=== PATIENT | male | born 1955 | race Caucasian/White ===

== ENCOUNTER 2018-06-14 17:01 | Inpatient (IN) ==
[2018-06-14] MEDS ORDERED: ASPIRIN CHEW 324 MG PO STA (18:00)
[2018-06-14] MEDS ORDERED: DiphenhydrAMINE HCL 50 MG/ML VIAL IV STA (18:02)
[2018-06-14] MEDS ORDERED: methylPREDNISolone 125 MG/2 ML VIAL IV STA (18:02)
[2018-06-14 18:48] LABS: Basophils # (auto) 0.02 K/uL (0-0.2); Basophils % (auto) 0.2 %; Eosinophils # (auto) 0.07 K/uL (0-0.5); Eosinophils % (auto) 0.7 %; Hematocrit (blood only) 40.1 % (42-52); Hemoglobin 13.5 g/dL (14.0-18.0); Immature Granulocytes # (auto) 0.01 K/uL (0.00-0.02); Immature Granulocytes % (auto) 0.1 %; Lymphocytes # (auto) 1.58 K/uL (1.2-3.4); Lymphocytes % (auto) 15.1 %; Mean Corpuscular Hgb Conc 33.7 g/dL (32-36); Mean Corpuscular Volume 86.8 fL (80-100); Mean Platelet Volume 9.2 fL (7.4-10.4); Monocytes # (auto) 1.65 K/uL (0.11-0.59); Monocytes % (auto) 15.8 %; Neutrophils % (auto) 68.1 %; Platelet Count 321 K/uL (130-400); RDW Coefficient of Variation 13.1 % (11.5-14.5); RDW Standard Deviation 41.8 fL (36.4-46.3); Red Blood Count 4.62 M/uL (4.7-6.1); White Blood Count 10.43 K/uL (4.8-10.8)
[2018-06-14 19:06] LABS: BUN Creatinine Ratio 13.8 (10-20); Blood Urea Nitrogen 16 mg/dl (7-18); Calcium 8.8 mg/dl (8.5-10.1); Carbon Dioxide 28 mmol/L (21-32); Chloride 100 mmol/L (98-107); Creatinine Clr Calc Pharmacy 70.9 ml/min; Est GFR (African American) 75.7; Est GFR (Non-African American) 65.3; Glucose 113 mg/dl (70-99); Potassium 4.2 mmol/L (3.5-5.1); Sodium 135 mmol/L (136-145)
[2018-06-14 19:11] LABS: NT Pro B Type Natriuretic Pept 733 pg/ml (0-900); Troponin I < 0.015 ng/ml (0-0.045)
--- NOTE | 2018-06-14 19:13 | XRay Report ---
XR abdomen 2V w PA chest HISTORY: 62 years-old Male cp sob ab distention acute short of breath with abdominal distention COMPARISON: Chest radiograph 03/20/2016 TECHNIQUE: PA view of the chest with erect and supine views of the abdomen FINDINGS: Cardiac silhouette is enlarged, increased in size from comparison. Prior median sternotomy. Opacity o f the right cardiophrenic angle suggests prominent epicardial fat pad. No pneumothorax or overt pulmo nary edema. Small bilateral pleural effusions with left basilar opacities. Degenerative changes of th e shoulders and spine. Nonobstructive bowel gas pattern. No pneumatosis or pneumoperitoneum. Moderate formed stool noted thr oughout the colon. No definite urolith. Degenerative changes of the pelvis, hips and spine. Phlebolit hs of the right hemipelvis. IMPRESSION: 1. Small bilateral pleural effusions with left basilar opacities suggesting atelectasis or pneumoniti s. 2. Cardiomegaly, increased in size comparison. 3. Suggested constipation. 4. Nonobstructive bowel gas pattern. The above report was generated using voice recognition software. It may contain grammatical, syntax o r spelling errors. Electronically signed by: John Olson M.D. 06/14/2018 7:12 PM
[2018-06-14] MEDS ORDERED: OPTIRAY 320 125ml IV PRN (20:06)
--- NOTE | 2018-06-14 20:39 | CT Scan Report ---
CT angio chest PE protocol CLINICAL HISTORY: 62 years-old Male presenting with [place] ^Chest Pain, eval for PE. TECHNIQUE: Multidetector CT angiography of the chest was performed after administration of intravenou s contrast. 3-D volumetric and/or maximum intensity projection (MIP) images were subsequently reconst ructed for review. IV contrast: Optiray 320. A dose lowering technique was used consistent with the p rinciples of ALARA (as low as reasonably achievable). COMPARISON: Chest x-ray performed earlier the same day. CT DOSE (mGy.cm): The estimated cumulative dose is 570.66 mGycm. FINDINGS: [employer] topogram: Cardiomegaly. Median sternotomy wires. Left pleural effusion. Extensive left basilar opacity. Pulmonary vasculature: The study is adequate for assessment of the pulmonary vascular tree. No filling defect within the pul monary arteries to suggest embolus. Main pulmonary artery is not enlarged. No flattening of the inter ventricular septum. No intracardiac filling defect. Reflux of contrast into the IVC and hepatic veins . This likely indicates elevated right heart pressure. Remaining chest: On soft tissue windows, normal thyroid and thoracic inlet. No axillary, supraclavicular, hilar, or me diastinal lymphadenopathy. Normal aorta. Postsurgical changes of the ascending aorta possibly from pr ior coronary artery bypass grafting. Median sternotomy wires noted. Large pericardial effusion with m ild pericardial enhancement. This is water density. No significant apparent mass effect on the right heart. Small right and moderate left pleural effusions. These are also water density. Upper abdomen n ormal. On lung windows, extensive volume loss and consolidation in the lower lobes, left greater than right. This is consistent with passive atelectasis in the setting of the effusions. No pneumothorax. Centra l airways patent. Pulmonary arteries are not significantly enlarged relative to adjacent bronchi. No significant interlobular septal thickening. On bone windows, degenerative changes of the spine. The median sternotomy remains nonunited. IMPRESSION: 1. No evidence of pulmonary embolus. 2. Large pericardial effusion with findings suggesting mild pericarditis. 3. Small right and moderate left pleural effusions. 4. Findings suggest elevated right heart pressure though there is no CT evidence of right heart stra in. 5. Postsurgical changes of coronary artery bypass suspected. Electronically signed by: Abraham Lee M.D. 06/14/2018 8:33 PM
[2018-06-14] MEDS ORDERED: COLCHICINE 0.6 MG TAB PO STA (21:05)
[2018-06-14] MEDS ORDERED: IBUPROFEN 600 MG TAB PO STA (21:05)
[2018-06-14 22:58] LABS: INR 1.1 (0.9-1.1); Partial Thromboplastin Ratio 1.2; Partial Thromboplastin Time 32.1 Seconds (21.0-31.0); Prothrombin Time 11.2 Seconds (9.0-12.0)
[2018-06-15] MEDS ORDERED: NITROGLYCERIN SL 0.4 MG/TAB TAB SL PRN (00:24)
[2018-06-15] MEDS ORDERED: ONDANSETRON INJ 2 MG/ML 2 ML VIAL IV PRN (00:24)
[2018-06-15] MEDS ORDERED: BENZONATATE 100 MG CAPSULE PO PRN (00:24)
[2018-06-15] MEDS ORDERED: ACETAMINOPHEN 325 MG TAB PO PRN (00:24)
[2018-06-15] MEDS: CLOTRIMAZOLE 10 MG TROCHE BUCCAL SCH ×4 (00:43→15:50)
--- NOTE | 2018-06-15 01:44 | History and Physical Report ---
DATE OF ADMISSION: 06/14/2018 CHIEF COMPLAINT: Shortness of breath and chest pain on deep breath. 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 The patient initially had a stress test about 8 years ago when he used to get short of breath in the middle of the night that was negative, and the third stress test was done recently few months back when while exercising he was having wave like feeling in his left chest and at the time stress test was showing nonsustained v-tach, then the patient underwent cardiac catheterization and CTA of the chest. He also followed by electrophysiology, who recommended observation and beta chasity therapy. 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 Due to potential risk of sudden cardiac , coronary artery implantation was recommended and status post surgery on 04/05/2018 with no complications. He was recommended to be on Cardizem for about 3 months and also initially prescribed Lasix. Lasix initially was stopped in April, but again there was lower extremity edema and then he was put back on for every other day and finally it was stopped by CT surgery couple of weeks ago. The patient says he generally exercises every day, 15 minutes on treadmill and after that he does horizontal bicycles, but since last he was getting more short of breath than usual and it got progressively worse, where he could not exercise, even walking a few steps, making him short of breath and fatigued and also having dry cough for last 2-3 days, he could not sleep because of dry cough and also had some lower extremity edema. He was feeling dizzy, and some sweaty feeling on the head which happens when he develops fever, feeling chills, loss of appetite for the 2-3 days and also pain in his bilateral shoulder blades. He went to see his family doctor, who advised him to come to the ER today. In the ER, a CTA of the chest was done which was showing large pericardial effusion and pericarditis and also bilateral pleural effusions. The ER physician called breaker hand on-call who recommended colchicine 0.6mg BID and ibuprofen 600 mg p.o. q.i.d., . Currently hemodynamically stable. He has chest pain while taking deep breaths, Currently no headaches, no blurred vision , no earache, no runny nose. Has some sore throat because of thrush. He has just finished clotrimazole, but there is still thrush . No difficulty swallowing. No nausea currently. No abdominal pain. Normal bowel and bladder movements. No blood in the stools, no black stools, no burning micturition, no hematuria, but urine is still dark since he is not drinking much in the last couple of days. ALLERGIES: PENICILLINS AND IODINATED CONTRAST IV DYE. PAST MEDICAL HISTORY: As mentioned above. PAST SURGICAL HISTORY: CABG for reimplant of right coronary artery performed at [facility], colonoscopy with biopsy, cardiac cath, dental surgery, EGDs with biopsy, cervical plaques, more remote, tonsillectomy and adenoidectomy. MEDICATIONS: The patient is on Prevacid 30 mg p.o. daily, allopurinol 300 mg p.o. daily, diltiazem 120 mg p.o. daily, aspirin 81 mg p.o. daily, clotrimazole antifungal cream p.r.n. b.i.d., atorvastatin 10 mg p.o. daily, Zantac 300 mg p.o. at bedtime, Toprol-XL 25 mg p.o. daily, Tessalon Perles 100 mg p.o. t.i.d. p.r.n., Coenzyme Q10 10 ____ mg 2 tablets daily, sulindac 200 mg p.o. b.i.d. to start on the first day of gout, fish oil 2000 mg daily, probiotics 1 capsule daily, gluconate 0.05% apply to scalp daily as needed, multivitamins 1 pill daily, Citrucel powder b.i.d. FAMILY HISTORY: Significant for father who had colon cancer. Mother had diabetes, diverticulosis and heart failure. SOCIAL HISTORY: , lives with . No smoking, no alcohol, no drug use. REVIEW OF SYMPTOMS: As per HPI. Rest of review of symptoms negative. PHYSICAL EXAMINATION: GENERAL: The patient is of moderate build, not in acute distress. VITAL SIGNS: Temperature 37, pulse 87, respirations 18, blood pressure 113/80, oxygen 95% on room air. HEENT: No pallor, no icterus. Pupils equal, round, and react to light. NECK: No JVD, no neck masses, no carotid bruit. CARDIOVASCULAR: S1, S2 heard, regular rate and rhythm, no murmur, no gallop. RESPIRATORY SYSTEM: Normal AP diameter. No signs accessory muscle use. No wheezing, no crackles. ABDOMEN: Soft, bowel sounds present. No distention, no guarding, no rigidity. CENTRAL NERVOUS SYSTEM: Cranial nerves II-XII grossly intact. Nonfocal. EXTREMITIES: Mild pedal edema present, no erythema seen. LABORATORIES: WBC 10.4, hemoglobin 13.5, hematocrit 40.1, platelets 321. Sodium 135, potassium 4.2, chloride 100, bicarbonate 28, BUN 16, creatinine 1.18, serum glucose 113, calcium 8.8. Troponin-I less than 0.015. BNP 733. Chest x-ray: Small bilateral pleural effusions with left bibasilar opacities suggesting atelectasis or pneumonitis, cardiomegaly, constipation. Chest CTA, no evidence of pulmonary embolus, large pericardial effusion with findings suggesting mild pericarditis. Small right and moderate left pleural effusions, findings suggest elevated right heart pressure, though there is no CT evidence of right heart strain. EKG: Normal sinus rhythm with rate of [address] elevation in inferior leads. ASSESSMENT AND PLAN: This is a 62-year-old male who presents with shortness of breath, chest pain on deep breath and found to have large pericardial effusion, pericarditis and bilateral pleural effusions. 1. Shortness of breath, chest pain on deep breath, most likely secondary to pericarditis. CTA of the chest showed large pericardial effusion and mild pericarditis. ER physician notified the breaker hand and was recommended to start on Colace and ibuprofen which is given. We will place him on ibuprofen given q. 6 hours, colchicine 0.6 mg p.o. b.i.d. Follow echocardiogram, follow serial cardiac enzymes and close monitoring in the tele floor. 2. Bilateral pleural effusions. Patient's Lasix was stopped couple of weeks ago. We will place him on IV Lasix 20 mg daily with potassium supplement and also we will check a chest ultrasound to see if there is any need to get thoracocentesis. 3. Anomalous origin of right coronary artery, status post coronary artery reimplantation on 04/05/2018 at [facility]. Patient recommended to be on Cardizem for 3 months. This will continue. Lasix was stopped couple of weeks ago, but we will place him back on it for now because of signs of volume overload. Await Cardiology opinion. 4. Schwannoma, status post surgery. 5. Gastroesophageal reflux disease on Zantac and Prevacid. 6. Hypertension. Continue metoprolol succinate and Cardizem. 7. Hyperlipidemia. Continue Lipitor. 8. Deep venous thrombosis prophylaxis, SCDs for now. 9. Disposition. Close monitor on tele floor. Level 1 full code. MTDD
--- NOTE | 2018-06-15 01:50 | Emergency Department Note ---
Entered by Anna Marino acting as a scribe for History of Present Illness General Chief complaint: Referred by Doctor Stated complaint: HEART FAILURE, DR COBIAN REFERRED Time Seen by Provider: 06/14/18 17:54 Source: patient Mode of arrival: ambulatory Limitations: no limitations History of Present Illness Onset (ago): day(s) 4 Location: chest Pain Consistency: + other (worsening) Maximum Pain Intensity: 0 Associated symptoms: + chest pain, + cough (dry cough), + shortness of breath, + weakness and + other (He notes that 4 days ago he developed throat pain, thrush, fatigue with walking, dizziness, chills, weight gain of 9 pounds since 06/03/2018. The patient denies leg pain. ); no fever/chills (The patient denies fever. The patient complains of chills. ) and no nausea/vomiting (The patient denies vomiting.) The patient is a 62 year old male who presents to the ED after being referred by his doctor for exertional dyspnea and chest pain. He states that he has a coronary reimplantation on 04/05/2018 in [place]. The patient notes that he has been active since his operation. He notes that 4 days ago he developed chest pain, weakness, shortness of breath, dry cough, fatigue with walking, dizziness, chills, weight gain of 9 pounds since 06/03/2018. He states that his symptoms are worsening. The patient denies fever, vomiting, abdominal pain, and leg pain. He notes that he takes aspirin. Home Medications Home Medications Medication Instructions Recorded Confirmed Type allopurinol 300 mg PO DAILY 06/14/18 06/14/18 History aspirin [Aspirin Low Dose] 81 mg PO BID 06/14/18 06/14/18 History atorvastatin 10 mg PO DAILY 06/14/18 06/14/18 History azelastine 1 spray INTRANASAL BID 06/14/18 06/14/18 History benzonatate 100 mg PO TID PRN 06/14/18 06/14/18 History coenzyme Q10 [Co Q-10] 20 mg PO DAILY 06/14/18 06/14/18 History diltiazem HCl 120 mg PO DAILY 06/14/18 06/14/18 History fluocinonide 1 applic TOPICAL BID 06/14/18 06/14/18 History lactobacillus combination no.4 3,000 mmu cells PO DAILY 06/14/18 06/14/18 History [Probiotic] lansoprazole 30 mg PO DAILY 06/14/18 06/14/18 History methylcellulose (with sugar) 1 tbsp PO BID 06/14/18 06/14/18 History [Citrucel (sucrose)] metoprolol succinate 25 mg PO DAILY 06/14/18 06/14/18 History multivitamin 1 tab PO DAILY 06/14/18 06/14/18 History omega-3 fatty acids [Fish Oil 1,000 mg PO DAILY 06/14/18 06/14/18 History Concentrate] ranitidine HCl 300 mg PO HS 06/14/18 06/14/18 History sulindac 200 mg PO BID 06/14/18 06/14/18 History Allergies Allergy/AdvReac Type Severity Reaction Status Date / Time Penicillins Allergy W[place] RASH Unverified 06/14/18 19:08 Iodinated Contrast- Oral and Allergy U REDNESS TO Unverified 06/14/18 19:08 IV Dye CHEST Past Med/Surg History Medical History Arrhythmia (Acute) non-sustained VT Diverticular disease (Acute) GERD (gastroesophageal reflux disease) (Acute) Gout (Acute) Hyperlipidemia (Acute) Syncope (Acute) Surgical History History of coronary artery bypass graft (Acute) Anomalous RCA; 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/2018 Family History Mother Congenital heart disease Social History Current Living Situation: Spouse current occupation: Retired Feels Safe at Home: Yes Safety Concerns: Feels Safe At This Time Smoking Status: Never smoker Do You Dip or Chew Tobacco: No Second Hand Exposure: No Tobacco Cessation Education Requested by Patient: No Hx Alcohol Use: Yes Alcohol type: beer Alcohol Intake Frequency: holidays/ special occasions only Hx Substance Use: No Beliefs That Will Affect Care: None Preferred Language: Luxembourgish Communication Ability: Effective 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 and A total of 10 systems reviewed and were otherwise negative Physical Exam Vital Signs Vital Signs - 24 hr 06/14/18 17:21 06/14/18 19:39 06/14/18 21:15 Temperature 37 C Temperature Source Oral Sepsis Recent Fever Within 48 Hours No Sepsis New/Unexplained Change in Mental Status No Sepsis Action Taken by Nursing No Action Required Pulse Rate 90 Pulse Rate [Bilateral] 86 87 Pulse Rhythm Regular Pulse Rhythm [Bilateral] Regular Regular Pulse Strength Normal Pulse Strength [Bilateral] Normal Normal Respiratory Rate 22 20 18 Respiratory Effort / Characteristics Non-Labored SOB on Exertion Non-Labored Spontaneous Non-Labored Spontaneous Respiratory Depth Normal Normal Normal Respiratory Pattern Regular Regular Blood Pressure 122/84 Blood Pressure [Right Arm] 125/92 113/80 Blood Pressure Mean 96 Blood Pressure Mean [Right Arm] 103 91 Blood Pressure Position [Right Arm] Lying Sitting Pulse Oximetry 92 98 95 Oxygen Delivery Method Room Air Room Air Room Air 06/14/18 22:00 06/15/18 00:08 Temperature 36.6 C Temperature Source Oral Sepsis Recent Fever Within 48 Hours Sepsis New/Unexplained Change in Mental Status Sepsis Action Taken by Nursing Pulse Rate Pulse Rate [Bilateral] 82 85 Pulse Rhythm Pulse Rhythm [Bilateral] Regular Regular Pulse Strength Pulse Strength [Bilateral] Normal Normal Respiratory Rate 20 20 Respiratory Effort / Characteristics Non-Labored Spontaneous Non-Labored Spontaneous Respiratory Depth Normal Normal Respiratory Pattern Regular Regular Blood Pressure Blood Pressure [Right Arm] 114/87 124/91 Blood Pressure Mean Blood Pressure Mean [Right Arm] 96 102 Blood Pressure Position [Right Arm] Sitting Sitting Pulse Oximetry 95 92 Oxygen Delivery Method Room Air Room Air GENERAL: He is oriented to person, place, and time. He appears well-developed and well-nourished. He does not appear distressed. HENT: Exam performed. Head: Normocephalic and atraumatic. Right Ear: External ear normal. No mastoid tenderness. Left Ear: External ear normal. No mastoid tenderness. Mouth/Throat: The oropharynx is clear and moist. No trismus in the jaw. No dental abscesses or uvula swelling. No oropharyngeal exudate or tonsillar abscesses. EYES: Conjunctivae and EOM are normal. Pupils are equal, round, and reactive to light. Right eye exhibits no discharge. Left eye exhibits no discharge. No scleral icterus. NECK: Normal range of motion. Neck supple. No JVD present. No spinous process tenderness present. No carotid bruit present. No rigidity. No tracheal deviation and normal range of motion present. No Brudzinski's sign and no Kernig 's sign noted. CV: Normal rate, regular rhythm, normal heart sounds and intact distal pulses. There is no peripheral edema. Palpable radial pulses bue. PULM/CHEST: Effort normal and breath sounds normal. No respiratory distress. No stridor. He has no wheezes. He has no rales. Chest Wall: He exhibits no tenderness. ABD: The abdomen is soft. Bowel sounds are normal. He has no distension. No mass is present. There is no tenderness. There is no rebound, no guarding, no Kitchen's sign and no tenderness at McBurney's point. Rovsig negative MUSC/SKEL: Normal range of motion. There is no peripheral edema, tenderness or deformity. LYMPH: No cervical adenopathy. NEURO: He is alert and oriented to person, place, and time. He has normal strength. No cranial nerve deficit or sensory deficit. Coordination and gait normal. GCS eye subscore is 4. GCS verbal subscore is 5. GCS motor subscore is 6. cerbellar tests wnl. SKIN: Skin is warm and dry. He is not diaphoretic. PSYCH: He has a normal mood and affect. His behavior is normal. Judgment and thought content normal. Course 1754: Past medical records reviewed. The patient was evaluated in room B2, and a complete history and physical examination were performed. 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 He had a procedure done on 04/05/18 for removal of this. 2101: Vital signs stable. Patient is exhibiting no rales on physical exam, no JVD, no muffled heart sounds. CTA shows no PE but does show a large pericardial effusion. Bedside ultrasound was performed which confirmed the large pericardial effusion, no pericardial tamponade. I reviewed the patient's case with Dr. Rouse [employer] Research Engineer. He agrees that he agrees that the patient should be admitted to the hospitalist services. He states that the patient should be started on Colchicine 0.6 mg BID as well we ibuprofen 600 mg Q6 hours. 2109: I reviewed the patient's case with Dr. Liza Ruiz. He will evaluate the patient for further management. Consultations Consultation #1: [id number]: I reviewed the patient's case with Dr. Rouse [employer] Research Engineer. He agrees that he agrees that the patient should be admitted to the hospitalist services. He states that the patient should be started on Colchicine 0.6 mg BID as well we ibuprofen 600 mg Q6 hours. Time: 21:02 Consultation #2: [id number]: I reviewed the patient's case with Dr. De Jesus Hospitalist Thelma Ruiz. He will evaluate the patient for further management. Time: 21:10 Administered Medications Clotrimazole (Mycelex) 10 mg BUCCAL [id number] ANGELA Stop: 06/25/18 00:23 Last Admin: 06/15/18 00:43 Dose: 10 mg Discontinued Medications Aspirin (Aspirin) 324 mg PO NOW STA Stop: 06/14/18 18:01 Last Admin: 06/14/18 18:51 Dose: 324 mg Colchicine (Colcrys) 0.6 mg PO NOW STA Stop: 06/14/18 21:06 Last Admin: 06/14/18 21:13 Dose: 0.6 mg Diphenhydramine HCl (Benadryl) 25 mg IV NOW STA Stop: 06/14/18 18:03 Last Admin: 06/14/18 19:32 Dose: 25 mg Ibuprofen (Motrin) 600 mg PO NOW STA Stop: 06/14/18 21:06 Last Admin: 06/14/18 21:13 Dose: 600 mg Methylprednisolone (Solumedrol) 125 mg IV NOW STA Stop: 06/14/18 18:03 Last Admin: 06/14/18 19:32 Dose: 125 mg Medical Decision Making Medical Records Attestation: I reviewed the patient's medical records. Home Medications Current Medication List: was personally reviewed by me Laboratory Data Attestation: I reviewed the patient's lab results. Result diagrams: 06/14/18 18:30 06/14/18 18:30 Lab Results 06/14/18 06/14/18 06/14/18 Range/Units 18:30 18:30 18:30 WBC 10.43 (4.8-10.8) K/uL RBC 4.62 L (4.7-6.1) M/uL Hgb 13.5 L (14.0-18.0) g/dL Hct 40.1 L (42-52) % MCV 86.8 (80-100) fL MCH 29.2 (25-34) pg MCHC 33.7 (32-36) g/dL RDW Std Deviation 41.8 (36.4-46.3) fL RDW Coeff of Ambrose 13.1 (11.5-14.5) % Plt Count 321 (130-400) K/uL MPV 9.2 (7.4-10.4) fL Immature Gran % (Auto) 0.1 % Neut % (Auto) 68.1 % Lymph % (Auto) 15.1 % [place] % (Auto) 15.8 % Eos % (Auto) 0.7 % Baso % (Auto) 0.2 % Immature Gran # (Auto) 0.01 (0.00-0.02) K/uL Neut # (Auto) 7.10 H (1.4-6.5) K/uL Lymph # (Auto) 1.58 (1.2-3.4) K/uL [place] # (Auto) 1.65 H (0.11-0.59) K/uL Eos # (Auto) 0.07 (0-0.5) K/uL Baso # (Auto) 0.02 (0-0.2) K/uL PT 11.2 (9.0-12.0) Seconds INR 1.1 (0.9-1.1) APTT 32.1 H (21.0-31.0) Seconds PTT Ratio 1.2 Sodium 135 L (136-145) mmol/L Potassium 4.2 (3.5-5.1) mmol/L Chloride 100 (98-107) mmol/L Carbon Dioxide 28 (21-32) mmol/L Anion Gap 7.0 (3-11) BUN 16 (7-18) mg/dl Creatinine 1.18 (0.6-1.4) mg/dl Est Cr Clr Drug Dosing 70.9 ml/min Est GFR ( Amer) 75.7 Est GFR (Non-Af Amer) 65.3 BUN/Creatinine Ratio 13.8 (10-20) Glucose 113 H (70-99) mg/dl Calcium 8.8 (8.5-10.1) mg/dl Troponin I < 0.015 (0-0.045) ng/ml NT-Pro-B Natriuret Pep 733 (0-900) pg/ml 06/14/18 Range/Units 22:53 WBC (4.8-10.8) K/uL RBC (4.7-6.1) M/uL Hgb (14.0-18.0) g/dL Hct (42-52) % MCV (80-100) fL MCH (25-34) pg MCHC (32-36) g/dL RDW Std Deviation (36.4-46.3) fL RDW Coeff of [place]rose (11.5-14.5) % Plt Count (130-400) K/uL MPV (7.4-10.4) fL Immature Gran % (Auto) % Neut % (Auto) % Lymph % (Auto) % [place] % (Auto) % Eos % (Auto) % Baso % (Auto) % Immature Gran # (Auto) (0.00-0.02) K/uL Neut # (Auto) (1.4-6.5) K/uL Lymph # (Auto) (1.2-3.4) K/uL [place] # (Auto) (0.11-0.59) K/uL Eos # (Auto) (0-0.5) K/uL Baso # (Auto) (0-0.2) K/uL PT (9.0-12.0) Seconds INR (0.9-1.1) APTT (21.0-31.0) Seconds PTT Ratio Sodium (136-145) mmol/L Potassium (3.5-5.1) mmol/L Chloride (98-107) mmol/L Carbon Dioxide (21-32) mmol/L Anion Gap (3-11) BUN (7-18) mg/dl Creatinine (0.6-1.4) mg/dl Est Cr Clr Drug Dosing ml/min Est GFR ( Amer) Est GFR (Non-Af Amer) BUN/Creatinine Ratio (10-20) Glucose (70-99) mg/dl Calcium (8.5-10.1) mg/dl Troponin I < 0.015 (0-0.045) ng/ml NT-Pro-B Natriuret Pep (0-900) pg/ml Imaging Data Radiologist's Impression: Radiology results as stated below per my review and the radiologist's interpretation: CT angio chest PE protocol CLINICAL HISTORY: 62 years-old Male presenting with [place] ^Chest Pain, eval for PE. TECHNIQUE: Multidetector CT angiography of the chest was performed after administration of intravenous contrast. 3-D volumetric and/or maximum intensity projection (MIP) images were subsequently reconstructed for review. IV contrast : Optiray 320. A dose lowering technique was used consistent with the principles of ALARA (as low as reasonably achievable). COMPARISON: Chest x-ray performed earlier the same day. CT DOSE (mGy.cm): The estimated cumulative dose is 570.66 mGycm. FINDINGS: Fire Battalion Chief topogram: Cardiomegaly. Median sternotomy wires. Left pleural effusion. Extensive left basilar opacity. Pulmonary vasculature: The study is adequate for assessment of the pulmonary vascular tree. No filling defect within the pulmonary arteries to suggest embolus. Main pulmonary artery is not enlarged. No flattening of the interventricular septum. No intracardiac filling defect. Reflux of contrast into the IVC and hepatic veins. This likely indicates elevated right heart pressure. Remaining chest: On soft tissue windows, normal thyroid and thoracic inlet. No axillary, supraclavicular, hilar, or mediastinal lymphadenopathy. Normal aorta. Postsurgical changes of the ascending aorta possibly from prior coronary artery bypass grafting. Median sternotomy wires noted. Large pericardial effusion with mild pericardial enhancement. This is water density. No significant apparent mass effect on the right heart. Small right and moderate left pleural effusions. These are also water density. Upper abdomen normal. On lung windows, extensive volume loss and consolidation in the lower lobes, left greater than right. This is consistent with passive atelectasis in the setting of the effusions. No pneumothorax. Central airways patent. Pulmonary arteries are not significantly enlarged relative to adjacent bronchi. No significant interlobular septal thickening. On bone windows, degenerative changes of the spine. The median sternotomy remains nonunited. IMPRESSION: 1. No evidence of pulmonary embolus. 2. Large pericardial effusion with findings suggesting mild pericarditis. 3. Small right and moderate left pleural effusions. 4. Findings suggest elevated right heart pressure though there is no CT evidence of right heart strain. 5. Postsurgical changes of coronary artery bypass suspected. Electronically signed by: Abraham Lee M.D. 06/14/2018 8:33 PM Dictated: 06/14/182026 Transcribed: 06/14/182026 XR abdomen 2V w PA chest HISTORY: 62 years-old Male cp sob ab distention acute short of breath with abdominal distention COMPARISON: Chest radiograph 03/20/2016 TECHNIQUE: PA view of the chest with erect and supine views of the abdomen FINDINGS: Cardiac silhouette is enlarged, increased in size from comparison. Prior median sternotomy. Opacity of the right cardiophrenic angle suggests prominent epicardial fat pad. No pneumothorax or overt pulmonary edema. Small bilateral pleural effusions with left basilar opacities. Degenerative changes of the shoulders and spine. Nonobstructive bowel gas pattern. No pneumatosis or pneumoperitoneum. Moderate formed stool noted throughout the colon. No definite urolith. Degenerative changes of the pelvis, hips and spine. Phleboliths of the right hemipelvis. IMPRESSION: 1. Small bilateral pleural effusions with left basilar opacities suggesting atelectasis or pneumonitis. 2. Cardiomegaly, increased in size comparison. 3. Suggested constipation. 4. Nonobstructive bowel gas pattern. The above report was generated using voice recognition software. It may contain grammatical, syntax or spelling errors. Electronically signed by: John Olson M.D. 06/14/2018 7:12 PM Dictated: 06/14/181909 Transcribed: 06/14/181909 ECG Data Attestation: I personally reviewed and interpreted this ECG as follows: Indication: chest pain Rate (beats per minute): 84 Rhythm: sinus rhythm Findings: + other (MA, QRS, and QTC were within normal limits. ); no ST depression and no ST elevation Blood Pressure Blood Pressure Findings: Normal blood pressure MDM Narrative 1754: Past medical records reviewed. The patient was evaluated in room B2, and a complete history and physical examination were performed. 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 He had a procedure done on 04/05/18 for removal of this. 2101: Vital signs stable. Patient is exhibiting no rales on physical exam, no JVD, no muffled heart sounds. CTA shows no PE but does show a large pericardial effusion. Bedside ultrasound was performed which confirmed the large pericardial effusion, no pericardial tamponade. I reviewed the patient's case with Dr. Kemp- [employer] Research Engineer. He agrees that he agrees that the patient should be admitted to the hospitalist services. He states that the patient should be started on Colchicine 0.6 mg BID as well we ibuprofen 600 mg Q6 hours. 2109: I reviewed the patient's case with Dr. De Jesus Hospitalist - Sara. He will evaluate the patient for further management. Impression & Plan Effusion, pericardium, Exertional dyspnea Discharge Plan Visit Data *Final* Discharge Date/Time: 06/14/18 23:04 Chief Complaint: Referred by Doctor Stated Complaint: HEART FAILURE, DR COBIAN REFERRED ED Provider: Pako Valverde Discharge Problem: Effusion, pericardium, Exertional dyspnea Patient Disposition: Admitted As Inpatient Discharge Instructions Interventions: ED Discharge Assessment Last Done: 06/14/18 23:04 The scribe's documentation has been prepared under my direction and personally reviewed by me in its entirety. I confirm that the note above accurately reflects all work, treatment, procedures, and medical decision making performed by me.
[2018-06-15] MEDS ORDERED: IBUPROFEN 600 MG TAB PO ONE (06:15)
[2018-06-15] MEDS: IBUPROFEN 600 MG TAB PO SCH ×3 (06:16→18:20)
--- NOTE | 2018-06-15 06:54 | Ultrasound Report ---
US effusion-chest/mediastinum CLINICAL HISTORY: Bilateral pleural effusions. COMPARISON STUDY: Chest CT June 14, 2018. FINDINGS: Volume of the left pleural effusion was 596 cc. Suitable left rib interspace was marked for possible subsequent thoracentesis. A small right pleural effusion was noted with volume of 90 cc. No right chest wall giles was placed given insufficient window for thoracentesis. IMPRESSION: 1. Moderate left pleural effusion with estimated volume of 596 cc. Suitable left rib interspace marke d for possible subsequent thoracentesis. 2. Small right pleural effusion. No right chest wall giles placed. Electronically signed by: Lavell Montalvo M.D. 06/15/2018 6:53 AM
[2018-06-15] MEDS ORDERED: [UNRECOGNIZED DRUG - OTHER] PO SCH (09:00)
[2018-06-15] MEDS ORDERED: COENZYME Q10 PO SCH (09:00)
[2018-06-15] MEDS ORDERED: POTASSIUM CHLORIDE 10 MEQ TABCR PO SCH (09:00)
[2018-06-15] MEDS ORDERED: dilTIAZem ER 120 MG CAPCR PO SCH (09:00)
[2018-06-15] MEDS ORDERED: ATORVASTATIN 10 MG TAB PO SCH (09:00)
[2018-06-15] MEDS ORDERED: COLCHICINE 0.6 MG TAB PO SCH (09:00)
[2018-06-15] MEDS ORDERED: PANTOprazole 40 MG TAB PO SCH (09:00)
[2018-06-15] MEDS ORDERED: MULTIVITAMIN TAB PO SCH (09:00)
[2018-06-15] MEDS ORDERED: METOPROLOL SUCC 25MG EXT REL TAB PO SCH (09:00)
[2018-06-15] MEDS ORDERED: FLUOCINONIDE TOP SCH (09:00)
[2018-06-15] MEDS ORDERED: LACTOBACILLUS ACIDOPHILUS (FLORANEX) TAB PO SCH (09:00)
[2018-06-15] MEDS ORDERED: FUROSEMIDE 20 MG in SYRINGE 0 ML IV SCH (09:00)
[2018-06-15] MEDS ORDERED: FLUOCINONIDE 0.05% CR 15 GM TUBE EXT SCH (09:00)
[2018-06-15] MEDS ORDERED: ALLOPURINOL 300 MG TAB PO SCH (09:00)
[2018-06-15] MEDS ORDERED: ASPIRIN 81 MG ECTAB PO SCH (09:00)
[2018-06-15] MEDS ORDERED: METHYLCELLULOSE POWDER 454 GM JAR PO SCH (09:00)
--- NOTE | 2018-06-15 09:04 | Cardiology Consultation ---
Date of Consultation June 15, 2018 Assessment & Plan (1) Effusion, pericardium: Patient presents with late postoperative pericardial effusion Adin's in 10-week after surgery with large pericardial effusion and borderline hemodynamic significance. He is begun on ibuprofen and colchicine in the emergency room received a single dose of Solu-Medrol due to dye allergy prior to CAT scan. Discussed findings with patient effusion worsens any further will likely need drainage either percutaneously versus surgical. Have recommended transfer to [facility] arrangements have been made continue current therapies as ordered. (2) Exertional dyspnea: Relatively recent onset likely reflecting hemodynamic significance of pericardial and pleural effusions moderate fluid retention. Reluctant to add diuretics as right ventricle appears to be preload dependent (3) H/O heart surgery: Status post reimplantation of anomalous coursing right coronary artery at 04/05/2018 (4) Pleural effusion: History of Present Illness Reason for Consultation: Pericardial effusion, pleural effusion, pericarditis Requesting Physician: Dr. 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 Patient underwent on 04/05/2018 right coronary surgical implantation. Presents now noting having done well postoperatively with substantial improvement in exercise capacity per dissipating in cardiac rehab exercising vigorously with good tolerance until approximately 5 days prior to presentation in the interim is noted symptoms of pleuritic pain bilateral shoulder pain increasing dyspnea with minimal exertion 5-6 pound weight gain with abdominal bloating. He presented to the emergency room due to symptoms he noted no fevers chills sweats cough hoarseness wheeze or hemoptysis melena or hematochezia noted no acute illness other than symptoms as a described. CT scan of the chest in the emergency room demonstrated large pericardial effusion as well as left pleural effusion. Confirmed by echocardiogram reflecting early hemodynamic significance of effusion. He is referred for further evaluation Allergies Allergy/AdvReac Type Severity Reaction Status Date / Time Penicillins Allergy [place] RASH Unverified 06/14/18 19:08 Iodinated Contrast- Oral and Allergy U REDNESS TO Unverified 06/14/18 19:08 IV Dye CHEST Home Medications Home Medications Medication Instructions Recorded Confirmed Type allopurinol 300 mg PO DAILY 06/14/18 06/14/18 History aspirin [Aspirin Low Dose] 81 mg PO BID 06/14/18 06/14/18 History atorvastatin 10 mg PO DAILY 06/14/18 06/14/18 History azelastine 1 spray INTRANASAL BID 06/14/18 06/14/18 History benzonatate 100 mg PO TID PRN 06/14/18 06/14/18 History coenzyme Q10 [Co Q-10] 20 mg PO DAILY 06/14/18 06/14/18 History diltiazem HCl 120 mg PO DAILY 06/14/18 06/14/18 History fluocinonide 1 applic TOPICAL BID 06/14/18 06/14/18 History lactobacillus combination no.4 3,000 mmu cells PO DAILY 06/14/18 06/14/18 History [Probiotic] lansoprazole 30 mg PO DAILY 06/14/18 06/14/18 History methylcellulose (with sugar) 1 tbsp PO BID 06/14/18 06/14/18 History [Citrucel (sucrose)] metoprolol succinate 25 mg PO DAILY 06/14/18 06/14/18 History multivitamin 1 tab PO DAILY 06/14/18 06/14/18 History omega-3 fatty acids [Fish Oil 1,000 mg PO DAILY 06/14/18 06/14/18 History Concentrate] ranitidine HCl 300 mg PO HS 06/14/18 06/14/18 History sulindac 200 mg PO BID 06/14/18 06/14/18 History Patient History Medical History Arrhythmia (Acute) non-sustained VT Diverticular disease (Acute) GERD (gastroesophageal reflux disease) (Acute) Gout (Acute) Hyperlipidemia (Acute) Syncope (Acute) Surgical History History of coronary artery bypass graft (Acute) Anomalous RCA; 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/2018 Family History Mother Congenital heart disease Social History Current Living Situation: Spouse current occupation: Retired Feels Safe at Home: Yes Safety Concerns: Feels Safe At This Time Smoking Status: Never smoker Do You Dip or Chew Tobacco: No Second Hand Exposure: No Tobacco Cessation Education Requested by Patient: No Hx Alcohol Use: Yes Alcohol type: beer Alcohol Intake Frequency: holidays/ special occasions only Hx Substance Use: No Beliefs That Will Affect Care: None Preferred Language: Latvian Communication Ability: Effective Spring Encaser Required: No Review of Systems As per HPI and otherwise negative Physical Exam 2 Vital Signs (Past 24 Hours): Last Vital Signs Temp 36.6 C 06/15/18 06:53 Pulse 73 06/15/18 06:53 Resp 18 06/15/18 06:53 BP 110/76 06/15/18 06:53 Pulse Ox 73 L 06/15/18 06:53 Physical Exam: HEENT exam is normocephalic and atraumatic Neck reveals old left surgical incision plethoric neck veins with jugular venous distention upright Lungs diminished breath sounds at the left base no rhonchi rales or wheeze Cardiovascular exam: Regular distant heart sounds with no S3 gallop there is no audible rub Chest surgical incision healing well Abdomen soft with moderate distention Extremities 1+ pedal edema with intact distal pulses Neurologically patient is alert oriented answering questions appropriately Results & Data Laboratory Results Laboratory Results WBC 10.43 K/uL (4.8-10.8) 06/14/18 18:30 RBC 4.62 M/uL (4.7-6.1) L 06/14/18 18:30 Hgb 13.5 g/dL (14.0-18.0) L 06/14/18 18:30 Hct 40.1 % (42-52) L 06/14/18 18:30 MCV 86.8 fL (80-100) 06/14/18 18:30 MCH 29.2 pg (25-34) 06/14/18 18:30 MCHC 33.7 g/dL (32-36) 06/14/18 18:30 RDW Std Deviation 41.8 fL (36.4-46.3) 06/14/18 18:30 RDW Coeff of [place] 13.1 % (11.5-14.5) 06/14/18 18:30 Plt Count 321 K/uL (130-400) 06/14/18 18:30 MPV 9.2 fL (7.4-10.4) 06/14/18 18:30 Immature Gran % (Auto) 0.1 % 06/14/18 18:30 Neut % (Auto) 68.1 % 06/14/18 18:30 Lymph % (Auto) 15.1 % 06/14/18 18:30 [place] % (Auto) 15.8 % 06/14/18 18:30 Eos % (Auto) 0.7 % 06/14/18 18:30 Baso % (Auto) 0.2 % 06/14/18 18:30 Immature Gran # (Auto) 0.01 K/uL (0.00-0.02) 06/14/18 18:30 Neut # (Auto) 7.10 K/uL (1.4-6.5) H 06/14/18 18:30 Lymph # (Auto) 1.58 K/uL (1.2-3.4) 06/14/18 18:30 [place] # (Auto) 1.65 K/uL (0.11-0.59) H 06/14/18 18:30 Eos # (Auto) 0.07 K/uL (0-0.5) 06/14/18 18:30 Baso # (Auto) 0.02 K/uL (0-0.2) 06/14/18 18:30 PT 11.2 Seconds (9.0-12.0) 06/14/18 18:30 INR 1.1 (0.9-1.1) 06/14/18 18:30 APTT 32.1 Seconds (21.0-31.0) H 06/14/18 18:30 PTT Ratio 1.2 06/14/18 18:30 Sodium 135 mmol/L (136-145) L 06/14/18 18:30 Potassium 4.2 mmol/L (3.5-5.1) 06/14/18 18:30 Chloride 100 mmol/L (98-107) 06/14/18 18:30 Carbon Dioxide 28 mmol/L (21-32) 06/14/18 18:30 Anion Gap 7.0 (3-11) 06/14/18 18:30 BUN 16 mg/dl (7-18) 06/14/18 18:30 Creatinine 1.18 mg/dl (0.6-1.4) 06/14/18 18:30 Est Cr Clr Drug Dosing 70.9 ml/min 06/14/18 18:30 Est GFR ( Amer) 75.7 06/14/18 18:30 Est GFR (Non-Af Amer) 65.3 06/14/18 18:30 BUN/Creatinine Ratio 13.8 (10-20) 06/14/18 18:30 Glucose 113 mg/dl (70-99) H 06/14/18 18:30 Calcium 8.8 mg/dl (8.5-10.1) 06/14/18 18:30 Troponin I < 0.015 ng/ml (0-0.045) 06/15/18 04:24 NT-Pro-B Natriuret Pep 733 pg/ml (0-900) 06/14/18 18:30 Diagnostic Findings Echocardiogram demonstrates borderline left hypertrophy with normal left systolic function is a large circumferential but predominantly posterior lateral pericardial effusion with right ventricular compression reflecting early hemodynamic significance ECG Additional Comments: EKG reveals normal sinus rhythm with ST elevation in inferior and lateral leads with MI depression consistent with pericarditis
--- NOTE | 2018-06-15 10:03 | Hospitalist Progress Note ---
Date of Service June 15, 2018 Assessment & Plan (1) Effusion, pericardium: Patient presents with late postoperative pericardial and pleural effusion Likely has Adin's in 10-week after surgery Has a large pericardial effusion and borderline hemodynamic significance. He is begun on ibuprofen and colchicine in the emergency room received a single dose of Solu-Medrol due to dye allergy prior to CAT scan. 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 06/15/2018 The patient was seen and examined in telemetry unit No complaints at rest With movement and sitting position has some chest pain and shortness of breath Was seen by cdl instructor and the patient will be transferred to [place] for continuation of care Physical Exam 2 Vital Signs (Past 24 Hours): Last Vital Signs Temp 36.6 C 06/15/18 06:53 Pulse 73 06/15/18 06:53 Resp 18 06/15/18 06:53 BP 110/76 06/15/18 06:53 Pulse Ox 73 L 06/15/18 06:53 Physical Exam: Lying in bed comfortably Constitutional: WD/WN, vitals as above (No apparent distress at rest) Eyes: PERRL, conjunctivae normal, anicteric sclerae ENMT: external ear and nose normal, oropharynx normal Respiratory: Auscultation: + diminished lung sounds (Bilaterally lower [place]) Cardiovascular: Heart Sounds: normal S1 and normal S2 Disant heart sounds Gastrointestinal (Abdomen): Inspection/Auscultation: abdomen normal to inspection and normal bowel sounds Results & Data Laboratory Results Short CBC 06/14/18 Range/Units 18:30 WBC 10.43 (4.8-10.8) K/uL Hgb 13.5 L (14.0-18.0) g/dL Hct 40.1 L (42-52) % Plt Count 321 (130-400) K/uL BMP 06/14/18 18:30 Sodium 135 L Potassium 4.2 Chloride 100 Carbon Dioxide 28 BUN 16 Creatinine 1.18 Glucose 113 H Calcium 8.8 Cardiac Enzymes 06/14/18 06/14/18 06/15/18 Range/Units 18:30 22:53 04:24 Troponin I < 0.015 < 0.015 < 0.015 (0-0.045) ng/ml Medications Administered Current Inpatient Medications Acetaminophen (Tylenol) 650 mg PO Q4H PRN PRN Reason: Pain or Fever Stop: 07/15/18 00:23 Allopurinol (Zyloprim) 300 mg PO DAILY ANGELA Stop: 07/15/18 08:59 Last Admin: 06/15/18 07:53 Dose: 300 mg Aspirin (Ecotrin) 81 mg PO BID ANGELA Stop: 07/15/18 08:59 Last Admin: 06/15/18 09:28 Dose: 81 mg Atorvastatin Calcium (Lipitor) 10 mg PO DAILY ANGELA Stop: 07/15/18 08:59 Last Admin: 06/15/18 07:52 Dose: 10 mg Benzonatate (Tessalon Perle) 100 mg PO TID PRN PRN Reason: Cough Stop: 07/15/18 00:23 Clotrimazole (Mycelex) 10 mg BUCCAL [id number] ANGELA Stop: 06/25/18 00:23 Last Admin: 06/15/18 06:16 Dose: 10 mg Colchicine (Colcrys) 0.6 mg PO BID [facility] Stop: 07/15/18 08:59 Last Admin: 06/15/18 07:50 Dose: 0.6 mg Diltiazem HCl (Tiazac) 120 mg PO DAILY [facility] Stop: 07/15/18 08:59 Last Admin: 06/15/18 07:51 Dose: 120 mg Fluocinonide (Lidex 0.5%) 1 appln EXT BID [facility] Stop: 07/15/18 08:59 Last Admin: 06/15/18 09:28 Dose: Not Given Furosemide 20 mg/ Syringe 2 mls @ 4 mls/min IV DAILY [facility] Stop: 07/15/18 08:59 Last Admin: 06/15/18 07:49 Dose: 4 mls/min Ibuprofen (Motrin) 600 mg PO Q6H ANGELA Stop: 07/15/18 05:59 Last Admin: 06/15/18 06:16 Dose: 600 mg Lactobacillus Acidophilus (Floranex) 4 tab PO DAILY ANGELA Stop: 07/15/18 08:59 Last Admin: 06/15/18 09:28 Dose: 4 tab Methylcellulose (Citrucel) 2 gm PO BID ANGELA Stop: 07/15/18 08:59 Metoprolol Succinate (Toprol Xl) 25 mg PO DAILY [facility] Stop: 07/15/18 08:59 Last Admin: 06/15/18 07:50 Dose: 25 mg Miscellaneous (Order Awaiting Action) 1 ea N/A QS [facility] Stop: 07/15/18 07:59 Last Admin: 06/15/18 09:27 Dose: Not Given Multivitamins (Multivitamin) 1 tab PO DAILY [facility] Stop: 07/15/18 08:59 Last Admin: 06/15/18 07:51 Dose: 1 tab Nitroglycerin (Nitrostat) 0.4 mg SL UD PRN PRN Reason: Chest Pain Stop: 07/15/18 00:23 Ondansetron HCl (Zofran) 4 mg IV Q6H PRN PRN Reason: Nausea Stop: 07/15/18 00:23 Pantoprazole Sodium (Protonix) 40 mg PO DAILY ANGELA Stop: 07/15/18 08:59 Last Admin: 06/15/18 07:49 Dose: 40 mg Potassium Chloride (Klor-Con M10) 10 meq PO DAILY ANGELA Stop: 07/15/18 08:59 Last Admin: 06/15/18 07:49 Dose: 10 meq Ranitidine HCl (Zantac) 300 mg PO HS [facility] Stop: 07/15/18 20:59
[2018-06-15 12:04] VITALS: O2SAT 92
[2018-06-15 15:53] VITALS: TEMP 97.9
[2018-06-15 18:28] VITALS: BP 124/91; PULSE 68
--- NOTE | 2018-06-15 18:37 | Discharge Summary ---
Date of Service June 15, 2018 Admission HPI Per Admitting Provider DICTATED BY: Jose M De Jesus MD DATE OF ADMISSION: 06/14/2018 CHIEF COMPLAINT: Shortness of breath and chest pain on deep breath. 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 The patient initially had a stress test about 8 years ago when he used to get short of breath in the middle of the night that was negative, and the third stress test was done recently few months back when while exercising he was having wave like feeling in his left chest and at the time stress test was showing nonsustained v-tach, then the patient underwent cardiac catheterization and CTA of the chest. He also followed by electrophysiology, who recommended observation and beta chasity therapy. 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 Due to potential risk of sudden cardiac , coronary artery implantation was recommended and status post surgery on 04/05/2018 with no complications. He was recommended to be on Cardizem for about 3 months and also initially prescribed Lasix. Lasix initially was stopped in April, but again there was lower extremity edema and then he was put back on for every other day and finally it was stopped by CT surgery couple of weeks ago. The patient says he generally exercises every day, 15 minutes on treadmill and after that he does horizontal bicycles, but since last he was getting more short of breath than usual and it got progressively worse, where he could not exercise, even walking a few steps, making him short of breath and fatigued and also having dry cough for last 2-3 days, he could not sleep because of dry cough and also had some lower extremity edema. He was feeling dizzy, and some sweaty feeling on the head which happens when he develops fever, feeling chills, loss of appetite for the 2-3 days and also pain in his bilateral shoulder blades. He went to see his family doctor, who advised him to come to the ER today. In the ER, a CTA of the chest was done which was showing large pericardial effusion and pericarditis and also bilateral pleural effusions. The ER physician called communications lead on-call who recommended colchicine 0.6mg BID and ibuprofen 600 mg p.o. q.i.d., . Currently hemodynamically stable. He has chest pain while taking deep breaths, Currently no headaches, no blurred vision , no earache, no runny nose. Has some sore throat because of thrush. He has just finished clotrimazole, but there is still thrush . No difficulty swallowing. No nausea currently. No abdominal pain. Normal bowel and bladder movements. No blood in the stools, no black stools, no burning micturition, no hematuria, but urine is still dark since he is not drinking much in the last couple of days. Admission Exam Per Admitting Provider PHYSICAL EXAMINATION: GENERAL: The patient is of moderate build, not in acute distress. VITAL SIGNS: Temperature 37, pulse 87, respirations 18, blood pressure 113/80, oxygen 95% on room air. HEENT: No pallor, no icterus. Pupils equal, round, and react to light. NECK: No JVD, no neck masses, no carotid bruit. CARDIOVASCULAR: S1, S2 heard, regular rate and rhythm, no murmur, no gallop. RESPIRATORY SYSTEM: Normal AP diameter. No signs accessory muscle use. No wheezing, no crackles. ABDOMEN: Soft, bowel sounds present. No distention, no guarding, no rigidity. CENTRAL NERVOUS SYSTEM: Cranial nerves II-XII grossly intact. Nonfocal. EXTREMITIES: Mild pedal edema present, no erythema seen. 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, status post cardiac surgery on March Discharge Exam Constitutional WD/WN, vitals as above (No apparent distress at rest) Eyes PERRL, conjunctivae normal, anicteric sclerae ENMT external ear and nose normal, oropharynx normal Respiratory Auscultation: + diminished lung sounds (Bilaterally lower [place]) Cardiovascular Heart Sounds: normal S1 and normal S2 Gastrointestinal (Abdomen) Inspection/Auscultation: abdomen normal to inspection and normal bowel sounds Discharge Data Allergies Allergy/AdvReac Type Severity Reaction Status Date / Time Penicillins Allergy [place] RASH Unverified 06/14/18 19:08 Iodinated Contrast- Oral and Allergy U REDNESS TO Unverified 06/14/18 19:08 IV Dye CHEST Consultations 06/15/18 00:24 Consult Case Management - Discharge Planning Routine 06/15/18 08:00 Consult Cardiology Routine 06/15/18 09:10 Burn CD for patient Stat 06/14/18 21:06 ED Decision to Admit Stat Ordered Studies 06/15/18 03:28 US effusion-chest/mediastinum Routine 06/14/18 18:01 CT angio chest PE protocol Stat Hospital Course (1) Effusion, pericardium: Patient presents with late postoperative pericardial and pleural effusion Likely has Adin's in 10-week after surgery Has a large pericardial effusion and borderline hemodynamic significance. He is begun on ibuprofen and colchicine in the emergency room received a single dose of Solu-Medrol due to dye allergy prior to CAT scan. 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 Cannot use too much diuretics due to compromised right ventricular function The patient was transferred to [place] for further evaluation and management Total Time Total Time Spent Total Time Spent (In Minutes): 35 minutes Total Time Includes: Examination of the Patient, Discharge Planning, Medication Reconciliation and Communication With Other Providers Discharge Plan Discharge Items Patient Disposition: Transfer Acute Care Hospital Reason For Visit: CHEST PAIN Discharge Diagnosis: Acute pericardial effusion with impending tamponade 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 All inpatient medications were continued as below. Acetaminophen (Tylenol) 650 mg PO Q4H PRN PRN Reason: Pain or Fever Stop: 07/15/18 00:23 Allopurinol (Zyloprim) 300 mg PO DAILY ANGELA Stop: 07/15/18 08:59 Last Admin: 06/15/18 07:53 Dose: 300 mg Aspirin (Ecotrin) 81 mg PO BID ANGELA Stop: 07/15/18 08:59 Last Admin: 06/15/18 09:28 Dose: 81 mg Atorvastatin Calcium (Lipitor) 10 mg PO DAILY [facility]A Stop: 07/15/18 08:59 Last Admin: 06/15/18 07:52 Dose: 10 mg Benzonatate (Tessalon Perle) 100 mg PO TID PRN PRN Reason: Cough Stop: 07/15/18 00:23 Clotrimazole (Mycelex) 10 mg BUCCAL [id number] [facility] Stop: 06/25/18 00:23 Last Admin: 06/15/18 06:16 Dose: 10 mg Colchicine (Colcrys) 0.6 mg PO BID ANG[facility]A Stop: 07/15/18 08:59 Last Admin: 06/15/18 07:50 Dose: 0.6 mg Diltiazem HCl (Tiazac) 120 mg PO DAILY [facility]A Stop: 07/15/18 08:59 Last Admin: 06/15/18 07:51 Dose: 120 mg Fluocinonide (Lidex 0.5%) 1 appln EXT BID [facility] Stop: 07/15/18 08:59 Last Admin: 06/15/18 09:28 Dose: Not Given Furosemide 20 mg/ Syringe 2 mls @ 4 mls/min IV DAILY [facility]A Stop: 07/15/18 08:59 Last Admin: 06/15/18 07:49 Dose: 4 mls/min Ibuprofen (Motrin) 600 mg PO Q6H ANGELA Stop: 07/15/18 05:59 Last Admin: 06/15/18 06:16 Dose: 600 mg Lactobacillus Acidophilus (Floranex) 4 tab PO DAILY [facility] Stop: 07/15/18 08:59 Last Admin: 06/15/18 09:28 Dose: 4 tab Methylcellulose (Citrucel) 2 gm PO BID [facility] Stop: 07/15/18 08:59 Metoprolol Succinate (Toprol Xl) 25 mg PO DAILY [facility] Stop: 07/15/18 08:59 Last Admin: 06/15/18 07:50 Dose: 25 mg Miscellaneous (Order Awaiting Action) 1 ea N/A QS [facility] Stop: 07/15/18 07:59 Last Admin: 06/15/18 09:27 Dose: Not Given Multivitamins (Multivitamin) 1 tab PO DAILY [facility] Stop: 07/15/18 08:59 Last Admin: 06/15/18 07:51 Dose: 1 tab Nitroglycerin (Nitrostat) 0.4 mg SL UD PRN PRN Reason: Chest Pain Stop: 07/15/18 00:23 Ondansetron HCl (Zofran) 4 mg IV Q6H PRN PRN Reason: Nausea Stop: 07/15/18 00:23 Pantoprazole Sodium (Protonix) 40 mg PO DAILY [facility] Stop: 07/15/18 08:59 Last Admin: 06/15/18 07:49 Dose: 40 mg Potassium Chloride (Klor-Con M10) 10 meq PO DAILY [facility] Stop: 07/15/18 08:59 Last Admin: 06/15/18 07:49 Dose: 10 meq Ranitidine HCl (Zantac) 300 mg PO HS [facility] Stop: 07/15/18 20:59 Prescriptions: Continue multivitamin Tablet 1 tab PO DAILY RF: 0 omega-3 fatty acids [Fish Oil Concentrate] 1,000 mg Capsule 1,000 mg PO DAILY RF: 0 atorvastatin 10 mg Tablet 10 mg PO DAILY RF: 0 coenzyme Q10 [Co Q-10] 10 mg Capsule 20 mg PO DAILY RF: 0 aspirin [Aspirin Low Dose] 81 mg Tablet,Delayed Release (Dr/Ec) 81 mg PO BID RF: 0 diltiazem HCl 120 mg Capsule,Extended Release 24 Hr 120 mg PO DAILY RF: 0 benzonatate 100 mg Capsule 100 mg PO TID PRN (Reason: Cough) RF: 0 ranitidine HCl 150 mg Tablet 300 mg PO HS RF: 0 lansoprazole 30 mg Capsule,Delayed Release(Dr/Ec) 30 mg PO DAILY RF: 0 allopurinol 300 mg Tablet 300 mg PO DAILY RF: 0 metoprolol succinate 25 mg Tablet Extended Release 24 Hr 25 mg PO DAILY RF: 0 azelastine 137 mcg (0.1 %) Aerosol,Blaine 1 spray Intranasal BID RF: 0 fluocinonide 0.05 % Solution 1 applic TOPICAL BID RF: 0 sulindac 200 mg Tablet 200 mg PO BID RF: 0 methylcellulose (with sugar) [Citrucel (sucrose)] Powder 1 tbsp PO BID RF: 0 lactobacillus combination no.4 [Probiotic] 3 billion cell Capsule 3,000 mmu cells PO DAILY RF: 0 Stand-Alone Forms: [facility] Discharge Orders: Discharge Order (Routine); Ordered 06/15/18 Ordered By: Alfredo Jasmine Admission Data Admit Date/Time: 06/14/18 22:13 Attending Provider: Alfredo Jasmine Admit Provider: Joes M De Jesus Primary Care Provider: Yohana Cespedes Other Providers: Jose M De Jesus ; Tip Kemp ; Augustine Linares ; Erik Peraza ; Demetrio Parks ; Ki Enamorado ; Harry Ferrari ; Kimberli James ; Elisabet Oliveira Service: Telemetry Other Interventions: Discharge Summary Assessment (RN) Last Done: 06/15/18 18:25
== END 2018-06-15 19:35 | disposition short-term general hospital (02) | DRG 315 ==
LOC: ED 17:01 → 2E 22:13